=== PATIENT | male | born 1950 | race Hispanic/Latino ===

== ENCOUNTER 2020-11-26 13:16 | Emergency (ER) | payer OTHER ==
[2020-11-26 14:13] LABS: #Basophils 0.1 10x3/uL (0.0-0.2); #Eosinphils 0.2 10x3/uL (0.0-0.5); #Monocytes 0.5 10x3/uL (0.0-1.1); #Neutrophils 5.2 10x3/uL (1.5-8.4); %Eosinophils 3.2 % (0.0-6.0); %Lymphocytes 12.3 % (18.0-47.0); %Monocytes 7.7 % (0.0-10.0); %Neutrophils 75.1 % (40.0-75.0); Hemoglobin 12.7 g/dL (13.5-17.5); Mean Corpuscular HGB CONC 31.6 g/dL (32.0-36.0); Mean Corpuscular Hemoglobin 27.7 pg (27.0-33.0); Mean Corpuscular Volume 87.6 fl (81.2-95.1); Mean Platelet Volume 10.5 fl (7.4-10.4); Platelet Count 195 10x3/uL (150-450); RBC Distribution Width 13.3 % (11.5-14.5); Red Blood Cell (RBC) Count 4.59 10x6/uL (4.32-5.72)
[2020-11-26 14:31] LABS: ALT (SGPT) 23 U/L (8-55); AST (SGOT) 24 U/L (5-34); Albumin 3.8 g/dL (3.4-4.8); Alkaline Phosphatase 112 U/L (40-110); Anion Gap 17 mmol/L (10-20); BUN (Urea Nitrogen) 18 mg/dL (8.4-25.7); Bilirubin, Total 0.7 mg/dL (0.2-1.2); Calc. Creatinine Clearance 0 mL/min (70-130); Calcium 9.5 mg/dL (7.8-10.44); Carbon Dioxide 27 mmol/L (23-31); Chloride 101 mmol/L (98-107); Globulin 3.4 g/dL (2.4-3.5); Glucose 353 mg/dL (80-115); Potassium 4.7 mmol/L (3.5-5.1); Protein, Total 7.2 g/dL (5.8-8.1); Sodium 140 mmol/L (136-145)
[2020-11-26] MEDS ORDERED: Dexamethasone 10 MG/ML VIAL ONE (14:38)
== END 2020-11-26 16:11 ==
LOC: EDBD → CSHERS 13:16
DX: J45.901 Unspecified asthma with (acute) exacerbation (principal); R79.0 Abnormal level of blood mineral; R60.9 Edema, unspecified; I11.0 Hypertensive heart disease with heart failure; I50.9 Heart failure, unspecified; E11.9 Type 2 diabetes mellitus without complications; I48.91 Unspecified atrial fibrillation; K21.9 Gastro-esophageal reflux disease without esophagitis; E78.5 Hyperlipidemia, unspecified; Z87.891 Personal history of nicotine dependence; Z95.0 Presence of cardiac pacemaker; Z79.82 Long term (current) use of aspirin; Z79.4 Long term (current) use of insulin; Z79.899 Other long term (current) drug therapy
CPT/HCPCS: 71045; 80053; 83880; 84484; 85025; 93005; 96374; J1100; J7620

== ENCOUNTER 2021-02-11 02:53 | Inpatient (IN) | payer OTHER ==
[2021-02-11 03:20] LABS: #Basophils 0.1 10x3/uL (0.0-0.2); #Eosinphils 0.3 10x3/uL (0.0-0.5); #Monocytes 0.7 10x3/uL (0.0-1.1); #Neutrophils 6.7 10x3/uL (1.5-8.4); %Basophils 0.7 % (0.0-2.0); %Eosinophils 3.1 % (0.0-6.0); %Lymphocytes 16.5 % (18.0-47.0); %Monocytes 7.6 % (0.0-10.0); %Neutrophils 71.2 % (40.0-75.0); Mean Corpuscular HGB CONC 32.5 g/dL (32.0-36.0); Mean Corpuscular Hemoglobin 27.3 pg (27.0-33.0); Mean Corpuscular Volume 84.1 fl (81.2-95.1); Mean Platelet Volume 10.5 fl (7.4-10.4); Platelet Count 206 10x3/uL (150-450); Red Blood Cell (RBC) Count 4.39 10x6/uL (4.32-5.72); White Blood Cell (WBC) Count 9.4 10x3/uL (3.5-10.5)
[2021-02-11 04:00] LABS: ALT (SGPT) 13 U/L (8-55); AST (SGOT) 13 U/L (5-34); Albumin 3.8 g/dL (3.4-4.8); Alkaline Phosphatase 120 U/L (40-110); Anion Gap 14 mmol/L (10-20); BUN (Urea Nitrogen) 20 mg/dL (8.4-25.7); Bilirubin, Total 0.6 mg/dL (0.2-1.2); Calc. Creatinine Clearance 0 mL/min (70-130); Calcium 9.1 mg/dL (7.8-10.44); Carbon Dioxide 27 mmol/L (23-31); Chloride 98 mmol/L (98-107); Globulin 3.7 g/dL (2.4-3.5); Glucose 410 mg/dL (80-115); Protein, Total 7.5 g/dL (5.8-8.1); Sodium 135 mmol/L (136-145)
[2021-02-11] MEDS ORDERED: Insulin Regular 300 UNITS/3 ML VIAL ONE (06:41)
[2021-02-11] MEDS ORDERED: Furosemide 40 MG/4 ML VIAL ONE (06:42)
[2021-02-11] MEDS ORDERED: Ventolin HFA Inhaler 60 PUFF INHALER ONE (06:54)
[2021-02-11 07:02] LABS: Troponin I 0.023 ng/mL (< 0.028)
[2021-02-11] MEDS ORDERED: Ondansetron ODT 4 MG TAB PO PRN (10:22)
[2021-02-11] MEDS ORDERED: Enoxaparin Sodium 40 MG/0.4 ML SYRINGE SC SCH (10:30)
[2021-02-11] MEDS ORDERED: Dextrose 5% in Water 1,000 ML IV PRN (10:32)
[2021-02-11] MEDS ORDERED: Dextrose 50% Abboject 50 ML SYRINGE SLOW IVP PRN (10:32)
[2021-02-11] MEDS ORDERED: Electrolyte Replacement Protocol 1 EACH FS SCH (10:45)
[2021-02-11] MEDS ORDERED: Ventolin HFA Inhaler 60 PUFF INHALER INH PRN (11:00)
[2021-02-11 11:35] LABS: Magnesium 1.8 mg/dL (1.6-2.6)
[2021-02-11] MEDS ORDERED: Magnesium 2 GM/50 ML 2 GM in Premix Bag 1 BAG IVPB SCH (12:00)
[2021-02-11] MEDS ORDERED: HumaLOG 300 UNITS/3 ML VIAL SC PRN (13:04)
[2021-02-11] MEDS: Furosemide 40 MG/4 ML VIAL SLOW IVP SCH (14:04)
[2021-02-11] MEDS: Ventolin HFA Inhaler 60 PUFF INHALER INH SCH ×2 (15:00→19:14)
[2021-02-11] MEDS: HumaLOG 300 UNITS/3 ML VIAL SC PRN ×2 (16:59→21:32)
[2021-02-11 17:09] LABS: Hemoglobin A1c 11.2 % (4.0-6.0)
[2021-02-11] MEDS: Mometasone 100 MCG/PUFF (1 INHALER) INH SCH (19:14)
[2021-02-11] MEDS ORDERED: Lantus 1000 UNITS/10 ML VIAL SC SCH (21:00)
[2021-02-11] MEDS ORDERED: DULoxetine 60 MG CAP PO SCH (21:00)
[2021-02-11] MEDS: DULoxetine 30 MG CAP PO SCH (21:23)
[2021-02-11] MEDS: Atorvastatin Calcium 40 MG TAB PO SCH (21:23)
[2021-02-11 21:35] LABS: SARS-CoV-2 PCR by NAA Not Detected (NotDetected)
[2021-02-12] MEDS: Acetaminophen 325 MG TAB PO PRN ×3 (00:18→23:40)
[2021-02-12 04:42] LABS: #Basophils 0.1 10x3/uL (0.0-0.2); #Eosinphils 0.2 10x3/uL (0.0-0.5); #Monocytes 0.7 10x3/uL (0.0-1.1); #Neutrophils 7.2 10x3/uL (1.5-8.4); %Basophils 0.6 % (0.0-2.0); %Eosinophils 2.2 % (0.0-6.0); %Lymphocytes 14.2 % (18.0-47.0); %Monocytes 6.9 % (0.0-10.0); %Neutrophils 75.4 % (40.0-75.0); Mean Corpuscular HGB CONC 31.5 g/dL (32.0-36.0); Mean Corpuscular Hemoglobin 26.9 pg (27.0-33.0); Mean Corpuscular Volume 85.4 fl (81.2-95.1); Mean Platelet Volume 10.2 fl (7.4-10.4); Platelet Count 210 10x3/uL (150-450); Red Blood Cell (RBC) Count 4.46 10x6/uL (4.32-5.72); White Blood Cell (WBC) Count 9.5 10x3/uL (3.5-10.5)
[2021-02-12 04:53] LABS: Anion Gap 12 mmol/L (10-20); BUN (Urea Nitrogen) 23 mg/dL (8.9-20.6); Calc. Creatinine Clearance 177 mL/min (70-130); Calcium 9.2 mg/dL (7.8-10.44); Carbon Dioxide 30 mmol/L (22-29); Cardiac Risk 2.8 (Less than 4.5); Chloride 101 mmol/L (98-107); Cholesterol 94 mg/dl (< 200 Desired); Glucose 251 mg/dL (70-105); HDL Cholesterol 33 mg/dL (>60 Neg Risk); LDL Cholesterol, Calculated 47 mg/dL; Magnesium 2.1 mg/dL (1.6-2.6); Potassium 3.9 mmol/L (3.5-5.1); Sodium 139 mmol/L (136-145); Triglycerides 72 mg/dL (Less than 150)
[2021-02-12] MEDS: Furosemide 40 MG/4 ML VIAL SLOW IVP SCH ×2 (06:27→13:14)
[2021-02-12] MEDS: Mometasone 100 MCG/PUFF (1 INHALER) INH SCH ×2 (07:30→19:20)
[2021-02-12] MEDS: Ventolin HFA Inhaler 60 PUFF INHALER INH SCH ×4 (07:35→19:20)
[2021-02-12] MEDS: Aspirin Chewable 81 MG TAB PO SCH (07:44)
[2021-02-12] MEDS: Digoxin 0.125 MG TAB PO SCH (07:45)
[2021-02-12] MEDS: Enoxaparin Sodium 40 MG/0.4 ML SYRINGE SC SCH (07:45)
[2021-02-12] MEDS: Potassium Chloride 20 MEQ TAB PO SCH (07:45)
[2021-02-12] MEDS: HumaLOG 300 UNITS/3 ML VIAL SC PRN ×3 (11:39→20:34)
[2021-02-12] MEDS: Insulin Regular 300 UNITS/3 ML VIAL SC SCH (16:50)
[2021-02-12] MEDS: NPH, Human Insulin Isophane 300 UNIT/3 ML VIAL SC SCH (20:33)
[2021-02-12] MEDS: DULoxetine 30 MG CAP PO SCH (20:33)
[2021-02-12] MEDS: Atorvastatin Calcium 40 MG TAB PO SCH (20:33)
[2021-02-12] MEDS ORDERED: GUAIFENESIN SF SOLN 200 MG/10 ML UDCUP ONE (20:44)
[2021-02-12] MEDS: GUAIFENESIN SF SOLN 200 MG/10 ML UDCUP PO PRN (20:44)
[2021-02-13 04:33] LABS: #Basophils 0.1 10x3/uL (0.0-0.2); #Eosinphils 0.2 10x3/uL (0.0-0.5); #Monocytes 0.8 10x3/uL (0.0-1.1); #Neutrophils 10.8 10x3/uL (1.5-8.4); %Basophils 0.5 % (0.0-2.0); %Eosinophils 1.2 % (0.0-6.0); %Lymphocytes 7.2 % (18.0-47.0); %Monocytes 6.5 % (0.0-10.0); %Neutrophils 83.9 % (40.0-75.0); Hemoglobin 11.7 g/dL (13.5-17.5); Mean Corpuscular HGB CONC 30.8 g/dL (32.0-36.0); Mean Corpuscular Hemoglobin 26.7 pg (27.0-33.0); Mean Corpuscular Volume 86.8 fl (81.2-95.1); Mean Platelet Volume 10.4 fl (7.4-10.4); Platelet Count 220 10x3/uL (150-450); RBC Distribution Width 14.1 % (11.5-14.5); Red Blood Cell (RBC) Count 4.38 10x6/uL (4.32-5.72); White Blood Cell (WBC) Count 12.9 10x3/uL (3.5-10.5)
[2021-02-13 04:45] LABS: Anion Gap 14 mmol/L (10-20); BUN (Urea Nitrogen) 26 mg/dL (8.9-20.6); Calc. Creatinine Clearance 177 mL/min (70-130); Calcium 9.3 mg/dL (7.8-10.44); Carbon Dioxide 32 mmol/L (22-29); Chloride 100 mmol/L (98-107); Glucose 158 mg/dL (70-105); Potassium 3.8 mmol/L (3.5-5.1); Sodium 142 mmol/L (136-145)
[2021-02-13] MEDS: Furosemide 40 MG/4 ML VIAL SLOW IVP SCH ×2 (05:33→13:46)
[2021-02-13] MEDS: Mometasone 100 MCG/PUFF (1 INHALER) INH SCH ×2 (06:43→19:35)
[2021-02-13] MEDS: Ventolin HFA Inhaler 60 PUFF INHALER INH SCH ×4 (06:44→19:40)
[2021-02-13 07:32] VITALS: BMI 49.6
[2021-02-13] MEDS: Digoxin 0.125 MG TAB PO SCH (08:07)
[2021-02-13] MEDS: Aspirin Chewable 81 MG TAB PO SCH (08:07)
[2021-02-13] MEDS: Carvedilol 6.25 MG TAB PO SCH ×2 (08:07→16:52)
[2021-02-13] MEDS: Enoxaparin Sodium 40 MG/0.4 ML SYRINGE SC SCH (08:08)
[2021-02-13] MEDS: Lisinopril 5 MG TAB PO SCH (08:09)
[2021-02-13] MEDS: Insulin Regular 300 UNITS/3 ML VIAL SC SCH ×4 (08:09→18:10)
[2021-02-13] MEDS: Potassium Chloride 20 MEQ TAB PO SCH (08:09)
[2021-02-13] MEDS ORDERED: NPH, Human Insulin Isophane 300 UNIT/3 ML VIAL SC SCH (09:00)
[2021-02-13] MEDS: HumaLOG 300 UNITS/3 ML VIAL SC PRN (11:45)
[2021-02-13] MEDS: Atorvastatin Calcium 40 MG TAB PO SCH (20:50)
[2021-02-13] MEDS: DULoxetine 30 MG CAP PO SCH (20:50)
[2021-02-13] MEDS: NPH, Human Insulin Isophane 300 UNIT/3 ML VIAL SC SCH (20:51)
[2021-02-14] MEDS: GUAIFENESIN SF SOLN 200 MG/10 ML UDCUP PO PRN ×2 (01:12→20:30)
[2021-02-14 04:36] LABS: #Basophils 0.1 10x3/uL (0.0-0.2); #Eosinphils 0.3 10x3/uL (0.0-0.5); #Monocytes 0.8 10x3/uL (0.0-1.1); #Neutrophils 8.6 10x3/uL (1.5-8.4); %Basophils 0.8 % (0.0-2.0); %Eosinophils 2.6 % (0.0-6.0); %Lymphocytes 10.3 % (18.0-47.0); %Monocytes 7.5 % (0.0-10.0); %Neutrophils 78.3 % (40.0-75.0); Hemoglobin 12.2 g/dL (13.5-17.5); Mean Corpuscular HGB CONC 32.2 g/dL (32.0-36.0); Mean Corpuscular Hemoglobin 27.3 pg (27.0-33.0); Mean Corpuscular Volume 84.8 fl (81.2-95.1); Mean Platelet Volume 9.9 fl (7.4-10.4); Platelet Count 216 10x3/uL (150-450); RBC Distribution Width 14.3 % (11.5-14.5); Red Blood Cell (RBC) Count 4.47 10x6/uL (4.32-5.72)
[2021-02-14 04:43] LABS: ALT (SGPT) 13 U/L (8-55); AST (SGOT) 14 U/L (5-34); Albumin 3.7 g/dL (3.5-5.0); Alkaline Phosphatase 69 U/L (40-110); Anion Gap 12 mmol/L (10-20); BUN (Urea Nitrogen) 28 mg/dL (8.9-20.6); Bilirubin, Total 0.8 mg/dL (0.2-1.2); Calc. Creatinine Clearance 185 mL/min (70-130); Calcium 9.1 mg/dL (7.8-10.44); Carbon Dioxide 30 mmol/L (22-29); Chloride 103 mmol/L (98-107); Globulin 3.9 g/dL (2.4-3.5); Glucose 76 mg/dL (70-105); Magnesium 2.2 mg/dL (1.6-2.6); Potassium 3.7 mmol/L (3.5-5.1); Protein, Total 7.6 g/dL (6.0-8.3); Sodium 141 mmol/L (136-145)
[2021-02-14] MEDS: Furosemide 40 MG/4 ML VIAL SLOW IVP SCH ×2 (05:42→12:28)
[2021-02-14] MEDS: Ventolin HFA Inhaler 60 PUFF INHALER INH SCH ×4 (06:58→19:20)
[2021-02-14] MEDS: Mometasone 100 MCG/PUFF (1 INHALER) INH SCH ×2 (06:59→19:15)
[2021-02-14] MEDS: Aspirin Chewable 81 MG TAB PO SCH (07:48)
[2021-02-14] MEDS: Digoxin 0.125 MG TAB PO SCH (07:48)
[2021-02-14] MEDS: Carvedilol 6.25 MG TAB PO SCH (07:48)
[2021-02-14] MEDS: Lisinopril 5 MG TAB PO SCH (07:48)
[2021-02-14] MEDS: Potassium Chloride 20 MEQ TAB PO SCH (07:48)
[2021-02-14] MEDS: Insulin Regular 300 UNITS/3 ML VIAL SC SCH ×3 (07:49→17:28)
[2021-02-14] MEDS: Enoxaparin Sodium 40 MG/0.4 ML SYRINGE SC SCH (07:49)
[2021-02-14] MEDS ORDERED: NPH, Human Insulin Isophane 300 UNIT/3 ML VIAL SC SCH (09:00)
[2021-02-14] MEDS: HumaLOG 300 UNITS/3 ML VIAL SC PRN ×2 (12:39→15:48)
[2021-02-14] MEDS: Carvedilol 12.5 MG TAB PO SCH (17:29)
[2021-02-14] MEDS: Acetaminophen 325 MG TAB PO PRN (18:25)
[2021-02-14] MEDS: NPH, Human Insulin Isophane 300 UNIT/3 ML VIAL SC SCH (20:30)
[2021-02-14] MEDS: DULoxetine 30 MG CAP PO SCH (20:30)
[2021-02-14] MEDS: Atorvastatin Calcium 40 MG TAB PO SCH (20:30)
[2021-02-15 05:21] LABS: #Basophils 0.1 10x3/uL (0.0-0.2); #Eosinphils 0.3 10x3/uL (0.0-0.5); #Monocytes 0.7 10x3/uL (0.0-1.1); #Neutrophils 6.1 10x3/uL (1.5-8.4); %Basophils 0.9 % (0.0-2.0); %Eosinophils 3.8 % (0.0-6.0); %Lymphocytes 17.6 % (18.0-47.0); %Monocytes 8.2 % (0.0-10.0); %Neutrophils 68.7 % (40.0-75.0); Hemoglobin 12.2 g/dL (13.5-17.5); Mean Corpuscular HGB CONC 31.8 g/dL (32.0-36.0); Mean Platelet Volume 9.7 fl (7.4-10.4); Platelet Count 207 10x3/uL (150-450); RBC Distribution Width 14.4 % (11.5-14.5); Red Blood Cell (RBC) Count 4.52 10x6/uL (4.32-5.72); White Blood Cell (WBC) Count 8.9 10x3/uL (3.5-10.5)
[2021-02-15 05:30] LABS: ALT (SGPT) 13 U/L (8-55); AST (SGOT) 15 U/L (5-34); Albumin 3.5 g/dL (3.5-5.0); Alkaline Phosphatase 66 U/L (40-110); Anion Gap 12 mmol/L (10-20); BUN (Urea Nitrogen) 32 mg/dL (8.9-20.6); Bilirubin, Total 0.4 mg/dL (0.2-1.2); Calc. Creatinine Clearance 167 mL/min (70-130); Calcium 8.9 mg/dL (7.8-10.44); Carbon Dioxide 29 mmol/L (22-29); Chloride 105 mmol/L (98-107); Globulin 3.7 g/dL (2.4-3.5); Glucose 136 mg/dL (70-105); Magnesium 2.2 mg/dL (1.6-2.6); Phosphorus 4.3 mg/dL (2.3-4.7); Potassium 3.9 mmol/L (3.5-5.1); Protein, Total 7.2 g/dL (6.0-8.3); Sodium 142 mmol/L (136-145)
[2021-02-15] MEDS: Furosemide 40 MG/4 ML VIAL SLOW IVP SCH ×2 (05:44→14:09)
[2021-02-15] MEDS: Mometasone 100 MCG/PUFF (1 INHALER) INH SCH ×2 (07:30→19:25)
[2021-02-15] MEDS: Ventolin HFA Inhaler 60 PUFF INHALER INH SCH ×4 (07:31→19:25)
[2021-02-15] MEDS: Potassium Chloride 20 MEQ TAB PO SCH (08:35)
[2021-02-15] MEDS: Aspirin Chewable 81 MG TAB PO SCH (08:35)
[2021-02-15] MEDS: Digoxin 0.125 MG TAB PO SCH (08:35)
[2021-02-15] MEDS: Lisinopril 5 MG TAB PO SCH (08:36)
[2021-02-15] MEDS: Carvedilol 12.5 MG TAB PO SCH ×2 (08:36→16:14)
[2021-02-15] MEDS: NPH, Human Insulin Isophane 300 UNIT/3 ML VIAL SC SCH ×2 (08:37→21:09)
[2021-02-15] MEDS: Insulin Regular 300 UNITS/3 ML VIAL SC SCH ×3 (08:38→16:14)
[2021-02-15] MEDS: Enoxaparin Sodium 40 MG/0.4 ML SYRINGE SC SCH (08:38)
[2021-02-15] MEDS: Acetaminophen 325 MG TAB PO PRN ×2 (11:50→23:00)
[2021-02-15] MEDS: HumaLOG 300 UNITS/3 ML VIAL SC PRN ×2 (11:51→16:32)
[2021-02-15] MEDS: DULoxetine 30 MG CAP PO SCH (21:02)
[2021-02-15] MEDS: Atorvastatin Calcium 40 MG TAB PO SCH (21:02)
[2021-02-16 05:44] LABS: ALT (SGPT) 15 U/L (8-55); AST (SGOT) 12 U/L (5-34); Albumin 3.6 g/dL (3.5-5.0); Alkaline Phosphatase 69 U/L (40-110); Anion Gap 11 mmol/L (10-20); BUN (Urea Nitrogen) 28 mg/dL (8.9-20.6); Bilirubin, Total 0.6 mg/dL (0.2-1.2); Calc. Creatinine Clearance 172 mL/min (70-130); Carbon Dioxide 30 mmol/L (22-29); Chloride 102 mmol/L (98-107); Globulin 3.8 g/dL (2.4-3.5); Glucose 183 mg/dL (70-105); Magnesium 2.3 mg/dL (1.6-2.6); Phosphorus 3.8 mg/dL (2.3-4.7); Potassium 3.6 mmol/L (3.5-5.1); Protein, Total 7.4 g/dL (6.0-8.3); Sodium 139 mmol/L (136-145)
[2021-02-16 05:47] LABS: #Basophils 0.1 10x3/uL (0.0-0.2); #Eosinphils 0.3 10x3/uL (0.0-0.5); #Monocytes 0.7 10x3/uL (0.0-1.1); #Neutrophils 5.5 10x3/uL (1.5-8.4); %Basophils 0.8 % (0.0-2.0); %Lymphocytes 19.3 % (18.0-47.0); %Monocytes 8.5 % (0.0-10.0); %Neutrophils 66.3 % (40.0-75.0); Hemoglobin 12.1 g/dL (13.5-17.5); Mean Corpuscular HGB CONC 31.1 g/dL (32.0-36.0); Mean Corpuscular Hemoglobin 26.8 pg (27.0-33.0); Mean Corpuscular Volume 86.1 fl (81.2-95.1); Mean Platelet Volume 10.3 fl (7.4-10.4); Platelet Count 219 10x3/uL (150-450); RBC Distribution Width 14.3 % (11.5-14.5); Red Blood Cell (RBC) Count 4.52 10x6/uL (4.32-5.72); White Blood Cell (WBC) Count 8.3 10x3/uL (3.5-10.5)
[2021-02-16] MEDS: Mometasone 100 MCG/PUFF (1 INHALER) INH SCH (06:50)
[2021-02-16] MEDS: Ventolin HFA Inhaler 60 PUFF INHALER INH SCH ×3 (06:51→15:44)
[2021-02-16] MEDS: NPH, Human Insulin Isophane 300 UNIT/3 ML VIAL SC SCH (08:15)
[2021-02-16] MEDS: Insulin Regular 300 UNITS/3 ML VIAL SC SCH ×3 (08:15→16:37)
[2021-02-16] MEDS: Potassium Chloride 20 MEQ TAB PO SCH (08:15)
[2021-02-16] MEDS: Carvedilol 12.5 MG TAB PO SCH ×2 (08:15→16:08)
[2021-02-16] MEDS: Digoxin 0.125 MG TAB PO SCH (08:15)
[2021-02-16] MEDS: Furosemide 20 MG TAB PO SCH ×2 (08:15→14:15)
[2021-02-16] MEDS: Aspirin Chewable 81 MG TAB PO SCH (08:16)
[2021-02-16] MEDS: Lisinopril 5 MG TAB PO SCH (08:16)
[2021-02-16] MEDS: Enoxaparin Sodium 40 MG/0.4 ML SYRINGE SC SCH (08:16)
[2021-02-16] MEDS: Acetaminophen 325 MG TAB PO PRN (09:45)
[2021-02-16] MEDS: HumaLOG 300 UNITS/3 ML VIAL SC PRN (11:57)
[2021-02-16 17:00] VITALS: BP 101/69; TEMP 97.4
== END 2021-02-16 18:00 | DRG 291 ==
LOC: EDBD → CSHERS 02:53 → EDBD 02:53 → EEVIPCON 02:53 → CSHTELE 08:23
PROVIDERS: ADMIT Internal Medicine; ATTEND Family Medicine
DX: I11.0 Hypertensive heart disease with heart failure (principal); I50.43 Acute on chronic combined systolic (congestive) and diastolic (congestive) heart failure; J96.01 Acute respiratory failure with hypoxia; Z68.42 Body mass index [BMI] 45.0-49.9, adult; Z20.822 Contact with and (suspected) exposure to COVID-19; E11.9 Type 2 diabetes mellitus without complications; E78.5 Hyperlipidemia, unspecified; K21.9 Gastro-esophageal reflux disease without esophagitis; E66.9 Obesity, unspecified; G47.33 Obstructive sleep apnea (adult) (pediatric); J45.909 Unspecified asthma, uncomplicated; I48.0 Paroxysmal atrial fibrillation; Z95.810 Presence of automatic (implantable) cardiac defibrillator; Z88.8 Allergy status to other drugs, medicaments and biological substances; Z91.010 Allergy to peanuts; Z79.82 Long term (current) use of aspirin; Z79.4 Long term (current) use of insulin; Z79.51 Long term (current) use of inhaled steroids; Z90.49 Acquired absence of other specified parts of digestive tract
CPT/HCPCS: 36415; 36416; 71275; 80048; 80053; 80061; 83036; 83735; 83880; 84100; 84443; 84484; 85025; 93005; 93306; 94640; 94660; 94664; 94760; 94762; 96374; 96375; 97139; J1650; J1815; J1940; J3475; U0003; U0005

== ENCOUNTER 2021-04-06 10:30 | Emergency (ER) | payer OTHER ==
[2021-04-06 10:58] LABS: #Basophils 0.1 10x3/uL (0.0-0.2); #Eosinphils 0.2 10x3/uL (0.0-0.5); #Monocytes 0.6 10x3/uL (0.0-1.1); #Neutrophils 6.2 10x3/uL (1.5-8.4); %Basophils 0.7 % (0.0-2.0); %Lymphocytes 13.4 % (18.0-47.0); %Monocytes 7.1 % (0.0-10.0); %Neutrophils 76.3 % (40.0-75.0); Hemoglobin 11.7 g/dL (13.5-17.5); Mean Corpuscular HGB CONC 32.1 g/dL (32.0-36.0); Mean Corpuscular Hemoglobin 27.5 pg (27.0-33.0); Mean Corpuscular Volume 85.6 fl (81.2-95.1); Mean Platelet Volume 9.8 fl (7.4-10.4); Platelet Count 192 10x3/uL (150-450); RBC Distribution Width 14.3 % (11.5-14.5); Red Blood Cell (RBC) Count 4.25 10x6/uL (4.32-5.72); White Blood Cell (WBC) Count 8.1 10x3/uL (3.5-10.5)
[2021-04-06] MEDS ORDERED: Furosemide 100 MG/10 ML VIAL ONE (11:08)
[2021-04-06 11:11] LABS: ALT (SGPT) 15 U/L (8-55); AST (SGOT) 15 U/L (5-34); Albumin 3.7 g/dL (3.5-5.0); Alkaline Phosphatase 99 U/L (40-110); Anion Gap 13 mmol/L (10-20); BUN (Urea Nitrogen) 19 mg/dL (8.9-20.6); Bilirubin, Total 0.8 mg/dL (0.2-1.2); Calc. Creatinine Clearance 0 mL/min (70-130); Calcium 8.7 mg/dL (7.8-10.44); Carbon Dioxide 28 mmol/L (22-29); Chloride 102 mmol/L (98-107); Globulin 3.1 g/dL (2.4-3.5); Glucose 225 mg/dL (70-105); Potassium 3.9 mmol/L (3.5-5.1); Protein, Total 6.8 g/dL (6.0-8.3); Sodium 139 mmol/L (136-145)
[2021-04-06] MEDS ORDERED: Insulin Regular 300 UNITS/3 ML VIAL ONE (18:29)
== END 2021-04-06 18:48 | disposition short-term general hospital (02) ==
LOC: EEVIPCON 10:30 → CSHERS 10:30
DX: I11.0 Hypertensive heart disease with heart failure (principal); I50.9 Heart failure, unspecified; K21.9 Gastro-esophageal reflux disease without esophagitis; E78.5 Hyperlipidemia, unspecified; I48.91 Unspecified atrial fibrillation; E11.9 Type 2 diabetes mellitus without complications; F17.200 Nicotine dependence, unspecified, uncomplicated; Z79.82 Long term (current) use of aspirin; Z79.4 Long term (current) use of insulin; Z79.899 Other long term (current) drug therapy
CPT/HCPCS: 36415; 36416; 71045; 80053; 83880; 84484; 85025; 93005; 96372; J1815; J1940

== ENCOUNTER 2021-04-25 00:52 | Emergency (ER) | payer OTHER ==
[2021-04-25] MEDS ORDERED: Acetaminophen 500 MG TAB ONE (01:27)
[2021-04-25 01:29] LABS: #Basophils 0.1 10x3/uL (0.0-0.2); #Eosinphils 0.3 10x3/uL (0.0-0.5); #Monocytes 0.9 10x3/uL (0.0-1.1); #Neutrophils 5.5 10x3/uL (1.5-8.4); %Basophils 0.9 % (0.0-2.0); %Eosinophils 3.6 % (0.0-6.0); %Lymphocytes 8.5 % (18.0-47.0); %Monocytes 12.4 % (0.0-10.0); %Neutrophils 73.8 % (40.0-75.0); Hemoglobin 12.1 g/dL (13.5-17.5); Mean Corpuscular HGB CONC 32.8 g/dL (32.0-36.0); Mean Corpuscular Hemoglobin 27.1 pg (27.0-33.0); Mean Corpuscular Volume 82.6 fl (81.2-95.1); Mean Platelet Volume 9.8 fl (7.4-10.4); Platelet Count 232 10x3/uL (150-450); RBC Distribution Width 13.7 % (11.5-14.5); Red Blood Cell (RBC) Count 4.47 10x6/uL (4.32-5.72); White Blood Cell (WBC) Count 7.4 10x3/uL (3.5-10.5)
[2021-04-25 01:49] LABS: SARS-CoV-2 NAA Rapid Test Not Detected (NotDetected)
[2021-04-25 01:52] LABS: ALT (SGPT) 20 U/L (8-55); AST (SGOT) 18 U/L (5-34); Albumin 3.7 g/dL (3.5-5.0); Alkaline Phosphatase 111 U/L (40-110); Anion Gap 13 mmol/L (10-20); BUN (Urea Nitrogen) 18 mg/dL (8.9-20.6); Bilirubin, Total 0.5 mg/dL (0.2-1.2); Calc. Creatinine Clearance 0 mL/min (70-130); Calcium 8.7 mg/dL (7.8-10.44); Carbon Dioxide 26 mmol/L (22-29); Chloride 99 mmol/L (98-107); Digoxin 0.58 ng/mL (0.8-2.0); Globulin 3.9 g/dL (2.4-3.5); Glucose 256 mg/dL (70-105); Protein, Total 7.6 g/dL (6.0-8.3); Sodium 134 mmol/L (136-145)
[2021-04-25] MEDS ORDERED: Oseltamivir 75 MG CAP PO SCH (02:30)
== END 2021-04-25 02:37 ==
LOC: CSHERS 00:52 → EEVIPCON 00:52 → CSHERS 02:37
DX: J10.1 Influenza due to other identified influenza virus with other respiratory manifestations (principal); I11.0 Hypertensive heart disease with heart failure; I50.9 Heart failure, unspecified; I48.91 Unspecified atrial fibrillation; E11.9 Type 2 diabetes mellitus without complications; E78.5 Hyperlipidemia, unspecified; J45.909 Unspecified asthma, uncomplicated; K21.9 Gastro-esophageal reflux disease without esophagitis; Z20.822 Contact with and (suspected) exposure to COVID-19; Z87.891 Personal history of nicotine dependence; Z79.899 Other long term (current) drug therapy; Z79.82 Long term (current) use of aspirin; Z79.4 Long term (current) use of insulin
CPT/HCPCS: 0240U; 71045; 80053; 80162; 83880; 84484; 85025; 93005